=== PATIENT | female | born 1980 | race Caucasian/White ===

== ENCOUNTER 2025-05-12 14:14 | Outpatient (OUT) | payer OTHER, SELFPAY ==
--- NOTE | 2025-05-12 15:12 | PM.CN ---
Consult Note: HPI Data of Consult Patient: new to practice Consult date: 05/12/25 Requesting Physician: Nicolette Smith NP Primary Care Provider: VERITO JACOBSEN Consult Narrative Reason for consult: bilateral knee pain Narrative: Moni Shell a 44 year old female presents to establish care for bilateral knee pain and low back pain. Pt would like to address bilateral knee pain as this is most severe, no prior imaging or PT per pt. She did recently move from [place] and has established care with PCP Verito Jacobsen. Pt notes longstanding bilateral knee pain > 1 year without injury. pain today 6/10 sharp shooting aching. pain increases with standing, walking, pushing, pulling, transitioning, stairs, bending, activity. notes mild improvement with sitting. Pt utilizing gabapentin 300mg TID, flexeril 10mg tid, meloxciam 15mg daily, norco 5-325mg bid prn, as well as THC. cc:: CC: Nicolette Smith NP Review of Systems ROS Musculoskeletal Reports: back pain and joint pain Exam Constitutional Documenting provider has reviewed patient's vital signs: yes Common normals: no apparent distress, oriented x3 and alert General appearance: cooperative HENMT Common normals: normocephalic, hearing grossly normal bilaterally and moist oral mucous membranes Head and scalp: normocephalic Eye Common normals: PERRL Pupil: PERRL Neck & C-Spine Common normals: full ROM General: normal visual inspection Chest Common normals: inspection of chest normal Respiratory Common normals: normal respiratory effort, no retractions and no use of accessory muscles Extremity Right lower extremity: knee joint Left lower extremity: knee joint Other: no crepitus, no edema, no instability noted, no increased pain with medial/lateral stress testing. no significant warmth or tenderness to touch Neuro Common normals: oriented x3 Sensorium/orientation: alert Psych Common normals: mental status grossly normal, thought process normal, cooperative, affect normal, speech normal and activity/motor behavior normal Speech: normal speech Thought process: normal thought process Results Additional Findings Additional findings: If on a controlled substance or opioids, I have checked an [place] report on this patient and there are no aberrancies noted in the prescribing history.??If on a controlled substance or opioid a drug screen was completed and reviewed within the last year, and if there has not been a drug screen completed we ordered one today to monitor higher risk, state monitored pain medication use. As part of providing excellent, safe, comprehensive care, the following was completed at our patient's visit: 1. A medication reconciliation and review to ensure accurate knowledge of current/active medications, including asking our patients to inform us about any [id number] medications or herbal remedies/nutritional supplements/alternative remedies. 2. A review to specifically ensure our patients have had annual screening for screening for depression, screening for tobacco use, and screening for unhealthy alcohol use. For concerning screenings had a discussion with the patient, provided patient education, and recommended follow-up with primary care provider when appropriate. If patient noted with a risk of falling, they received education on strength, gait, and balance training to prevent future risk of falling. Portions of this note may have been carried over from the previous visit and updated as appropriate. Please note this office utilizes paper charting in addition to the electronic medical record. A list of current medications, vitals, and PMH is available there as the clinical staff outside of myself do not have access to [employer] charting during the clinic day operations. As part of providing quality comprehensive care the current medications, vitals, and PMH were reviewed in the paper chart. Assessment and Plan Assessment and Plan (1) Chronic pain of both knees: (2) Failed back syndrome: Assessment and Plan: recent low back surgery, no available records or imaging. will request from prior care team. pt reports 3 level spinal fusion Plan Update bilateral knee xray to assess chronic pain, as discussed may consider injections based on OA however i am recommending she trial otc voltaren BID-TID prn pain/edema and start PT for bilateral knee pain. pt given PT script to attend closer to home. defer UDS, NNCP with chronic thc use. pt interested in weaning off of gabapentin, can decrease as tolerated. defer additional medication management at this time. f/u once PT complete.
== END 2025-05-12 14:15 | disposition home or self-care (01) ==
LOC: PM 14:16
PROVIDERS: PCP Nurse Practitioner; Visit Provider Nurse Practitioner
DX: M25.561 Pain in right knee (principal); M25.562 Pain in left knee; G89.29 Other chronic pain; M96.1 Postlaminectomy syndrome, not elsewhere classified
CPT/HCPCS: 73564; G0463

== ENCOUNTER 2025-05-12 15:27 | Outpatient (OUT) | payer OTHER, SELFPAY ==
--- NOTE | 2025-05-12 15:38 | XR_ITS ---
[place] [id number] Patient Name: MYNOR ABDI MRN: [id number] date: 1980 Sex: F Assigned Patient Location: [facility] Current Patient Location: [facility] Accession/Order Number: [id number] Exam Date: 05/12/2025 15:48 Report Date: 05/12/2025 16:39 At the request of: CLAUDIA PAYNE NP Procedure: XR knee JACINTO 4V XR knee JACINTO 4V 05/12/2025 3:56 PM SIGNS AND SYMPTOMS: ^Bilateral Knee Pain PROTOCOL: 8 views of the bilateral knees COMPARISON: None FINDINGS: The weightbearing and patellofemoral joint spaces are preserved. No joint effusion or soft tissue swelling. No fracture or dislocation. XR/XR knee JACINTO 4V IMPRESSION: No acute bony injury. No significant degenerative change. Impression dictated by: Miles Diaz M.D. 05/12/2025 4:39 PM Dictation Location: [employer] [employer] Electronically authenticated by: [id number] Date: 05/12/2025 16:39
== END 2025-05-12 15:28 | disposition home or self-care (01) ==
PROVIDERS: PCP Nurse Practitioner; Visit Provider Nurse Practitioner
DX: M25.561 Pain in right knee (principal); M25.562 Pain in left knee
CPT/HCPCS: 73564